=== PATIENT | male | born 1970 | race Caucasian/White ===

== ENCOUNTER 2018-11-27 15:16 | Emergency (ER) | payer OTHER ==
--- NOTE | 2018-11-27 15:41 | ER ---
Nurse's Notes [facility] Name: Uriel Mathias Age: 48 yrs Sex: Male : 1970 Arrival Date: 11/27/2018 Time: 15:21 Bed 11 Private MD: Diagnosis: Irritant contact dermatitis Presentation: 11/27 15:22 Presenting complaint:. Presenting complaint: Patient states: "I think I got a chemical aa5 burn with a skin irritant at work on Tuesday but I didn't have any symptoms until yesterday". Pt reports redness to left FA that he noticed yesterday. Transition of care: patient was not received from another setting of care. Onset of symptoms was November 2018. Risk Assessment: Do you want to hurt yourself or someone else? Patient reports no desire to harm self or others. Initial Sepsis Screen: Does the patient meet any 2 criteria? No. Patient's initial sepsis screen is negative. Does the patient have a suspected source of infection? No. Patient's initial sepsis screen is negative. Care prior to arrival: None. 15:22 Acuity: MALENA 5 aa5 15:22 Method Of Arrival: Ambulatory aa5 Triage Assessment: 16:21 Respiratory: aa5 Historical: - Allergies: 15:24 No Known Allergies; aa5 - PMHx: 15:24 None; aa5 - PSHx: 15:24 Hernia repair; aa5 - Immunization history:: Last tetanus immunization: unknown. - Social history:: Smoking status: Patient/guardian denies using tobacco. - Ebola Screening: : No symptoms or risks identified at this time. Screenin:30 Abuse screen: Denies threats or abuse. Nutritional screening: No deficits noted. aa5 Tuberculosis screening: No symptoms or risk factors identified. Fall Risk None identified. Assessment: 15:25 General: Appears comfortable, Behavior is calm, cooperative. Pain: Complains of pain in aa5 left forearm Pain does not radiate. Pain currently is 1 out of 10 on a pain scale. Quality of pain is described as tender, Pain began 1 day ago. Is continuous. Neuro: Level of Consciousness is awake, alert, obeys commands, Oriented to person, place, time, situation. Cardiovascular: Capillary refill < 3 seconds is brisk in bilateral fingers. Respiratory: Airway is patent Respiratory effort is even, unlabored, Respiratory pattern is regular, symmetrical. GI: No signs and/or symptoms were reported involving the gastrointestinal system. : No signs and/or symptoms were reported regarding the genitourinary system. EENT: No signs and/or symptoms were reported regarding the EENT system. Derm: Skin is pink, warm \\T\\ dry. Rash noted that is red, raised, on left forearm and left thumb. Musculoskeletal: Range of motion: intact in all extremities. 15:50 Reassessment: Patient is alert, oriented x 3, equal unlabored respirations, skin aa5 warm/dry/pink. Vital Signs: 15:24 BP 110 / 73; Pulse 78; Resp 16 S; Temp 97.9(TE); Pulse Ox 98% on R/A; Weight 95.25 kg aa5 (R); Height 6 ft. 3 in. (190.50 cm) (R); Pain 1/10; 15:24 Body Mass Index 26.25 (95.25 kg, 190.50 cm) aa5 ED Course: 15:21 Patient arrived in ED. aa5 15:22 Arm band placed on. aa5 15:22 Patient has correct armband on for positive identification. aa5 15:24 Triage completed. aa5 15:25 Joanie Conti RN is Primary Nurse. aa5 15:26 John Traylor NP is PHCP. pm1 15:26 Ortega Young MD is Attending Physician. pm1 15:50 No provider procedures requiring assistance completed. Patient did not have IV access aa5 during this emergency room visit. Administered Medications: No medications were administered Outcome: 15:40 Discharge ordered by . pm1 15:50 Discharged to home ambulatory. aa5 15:50 Condition: good 15:50 Discharge instructions given to patient, Instructed on discharge instructions, follow up and referral plans. Demonstrated understanding of instructions, follow-up care. 15:53 Patient left the ED. aa5 Signatures: Joanie Conti RN RN aa5 John Traylor NP [employer] pm1 Corrections: (The following items were deleted from the chart) 16:25 16:00 No provider procedures requiring assistance completed. aa5 aa5 16:25 16:00 Patient did not have IV access during this emergency room visit. aa5 aa5
--- NOTE | 2018-11-27 15:42 | EDPHYS ---
Physician Documentation [facility] Name: Uriel Mathias Age: 48 yrs Sex: Male : 1970 Arrival Date: 11/27/2018 Time: 15:21 Bed 11 Private MD: ED Physician Ortega Young HPI: 11/27 15:39 This 48 yrs old Male presents to ER via Ambulatory with complaints of pm1 Chemical Burn. 15:39 The patient's rash thought to be caused by chemical exposure. The rash is located on pm1 the dorsal aspect of proximal phalanx of left thumb and palmar surface of left forearm. The rash can be described as itchy red rash. Skin intact. No blisters. Onset: The symptoms/episode began/occurred 3 day(s) ago. Associated signs and symptoms: Pertinent positives: itching, Pertinent negatives: burning sensation, difficulty breathing, Pain swelling of lips, swelling of throat, swelling of tongue, vomiting, wheezing. Severity of symptoms: in the emergency department the symptoms are unchanged. Treatment given at home: None. The patient has not experienced similar symptoms in the past. The patient has not recently seen a physician. Patient was working with chemical named, [employer]. Patient was opening drum and was exposed to chemical on his left forearm which was not protected by PPE and to left dorsal aspect of thumb which he did have gloves on. Ithcy red rash to palmar surface of left forearm and a small bump on dorsum of left thumb. Historical: - Allergies: 15:24 No Known Allergies; aa5 - PMHx: 15:24 None; aa5 - PSHx: 15:24 Hernia repair; aa5 - Immunization history:: Last tetanus immunization: unknown. - Social history:: Smoking status: Patient/guardian denies using tobacco. - Ebola Screening: : No symptoms or risks identified at this time. ROS: 15:39 Constitutional: Negative for fever, chills, and weight loss, Eyes: Negative for injury, pm1 pain, redness, and discharge, ENT: Negative for injury, pain, and discharge, Neck: Negative for injury, pain, and swelling, Cardiovascular: Negative for chest pain, palpitations, and edema, Respiratory: Negative for shortness of breath, cough, wheezing, and pleuritic chest pain, Abdomen/GI: Negative for abdominal pain, nausea, vomiting, diarrhea, and constipation, Back: Negative for injury and pain, MS/Extremity: Negative for injury and deformity. 15:39 Neuro: Negative for headache, weakness, numbness, tingling, and seizure. 15:39 Skin: Positive for rash, of the palmar aspect of left forearm and dorsal aspect of proximal phalanx of left thumb, Negative for abscesses, cellulitis. Exam: 15:39 Constitutional: This is a well developed, well nourished patient who is awake, alert, pm1 and in no acute distress. Head/Face: Normocephalic, atraumatic. Eyes: Pupils equal round and reactive to light, extra-ocular motions intact. Lids and lashes normal. Conjunctiva and sclera are non-icteric and not injected. Cornea within normal limits. Periorbital areas with no swelling, redness, or edema. ENT: Nares patent. No nasal discharge, no septal abnormalities noted. Tympanic membranes are normal and external auditory canals are clear. Oropharynx with no redness, swelling, or masses, exudates, or evidence of obstruction, uvula midline. Mucous membranes moist. Neck: Trachea midline, no thyromegaly or masses palpated, and no cervical lymphadenopathy. Supple, full range of motion without nuchal rigidity, or vertebral point tenderness. No Meningismus. Chest/axilla: Normal chest wall appearance and motion. Nontender with no deformity. No lesions are appreciated. Cardiovascular: Regular rate and rhythm with a normal S1 and S2. No gallops, murmurs, or rubs. Normal PMI, no JVD. No pulse deficits. Respiratory: Lungs have equal breath sounds bilaterally, clear to auscultation and percussion. No rales, rhonchi or wheezes noted. No increased work of breathing, no retractions or nasal flaring. Abdomen/GI: Soft, non-tender, with normal bowel sounds. No distension or tympany. No guarding or rebound. No evidence of tenderness throughout. Back: No spinal tenderness. No costovertebral tenderness. Full range of motion. 15:39 Skin: Appearance: normal except for affected area, consistent with contact dermatitis, on the dorsal aspect of proximal phalanx of left thumb and palmar aspect of left forearm. Vital Signs: 15:24 BP 110 / 73; Pulse 78; Resp 16 S; Temp 97.9(TE); Pulse Ox 98% on R/A; Weight 95.25 kg aa5 (R); Height 6 ft. 3 in. (190.50 cm) (R); Pain 1/10; 15:24 Body Mass Index 26.25 (95.25 kg, 190.50 cm) aa5 MDM: 15:26 Patient medically screened. pm1 15:39 Data reviewed: vital signs. Data interpreted: Pulse oximetry: on room air is 98 %. pm1 Interpretation: normal. Counseling: I had a detailed discussion with the patient and/or guardian regarding: the historical points, exam findings, and any diagnostic results supporting the discharge/admit diagnosis, the need for outpatient follow up, to return to the emergency department if symptoms worsen or persist or if there are any questions or concerns that arise at home. Administered Medications: No medications were administered Disposition: 17:09 Co-signature as Attending Physician, Ortega Young MD. rn Disposition: 11/27/18 15:40 Discharged to Home. Impression: Irritant contact dermatitis. - Condition is Stable. - Discharge Instructions: Contact Dermatitis. - Work release form, Medication Reconciliation Form, Thank You Letter, Antibiotic Education, Prescription Opioid Use form. - Follow up: Emergency Department; When: As needed; Reason: Worsening of condition. Follow up: Private Physician; When: 2 - 3 days; Reason: Recheck today's complaints, Continuance of care, Re-evaluation by your physician. - Problem is new. - Symptoms have improved. Signatures: Ortega Young MD MD rn Calderon, Audri, RN RN aa5 John Traylor NP [employer] pm1 Corrections: (The following items were deleted from the chart) 15:53 15:40 11/27/2018 15:40 Discharged to Home. Impression: Irritant contact dermatitis. aa5 Condition is Stable. Forms are Medication Reconciliation Form, Thank You Letter, Antibiotic Education, Prescription Opioid Use. Follow up: Emergency Department; When: As needed; Reason: Worsening of condition. Follow up: Private Physician; When: 2 - 3 days; Reason: Recheck today's complaints, Continuance of care, Re-evaluation by your physician. Problem is new. Symptoms have improved. pm1
[2018-11-27 18:13] VITALS: BP 110/73; TEMP 97.9; O2SAT 98
== END 2018-11-27 15:53 | disposition home or self-care (01) ==
LOC: ER 15:16
DX: L24.5 Irritant contact dermatitis due to other chemical products (principal); T65.891A Toxic effect of other specified substances, accidental (unintentional), initial encounter; Y92.89 Other specified places as the place of occurrence of the external cause
CPT/HCPCS: 99281